=== PATIENT | male | born 1970 | race Caucasian/White ===

== ENCOUNTER → 2023-10-15 15:43 | Outpatient (REF) | payer OTHER, SELFPAY | LOC: HWRAD 15:43 | PROVIDERS: ATTENDING PHYSICIAN Neurological Surgery; FAMILY PHYSICIAN Family Medicine | DX: M54.50 Low back pain, unspecified (principal) | CPT/HCPCS: 72131 ==

== ENCOUNTER → 2023-10-21 20:35 | Outpatient (REF) | payer OTHER, SELFPAY | LOC: MRI 20:35 | PROVIDERS: ATTENDING PHYSICIAN Neurological Surgery | DX: M54.50 Low back pain, unspecified (principal) | CPT/HCPCS: 72148 ==

== ENCOUNTER → 2023-10-28 15:28 | Outpatient (REF) | payer OTHER, SELFPAY | LOC: REG 15:28 | PROVIDERS: ATTENDING PHYSICIAN Neurological Surgery; FAMILY PHYSICIAN Family Medicine | DX: M54.50 Low back pain, unspecified (principal) | CPT/HCPCS: 72114 ==

== ENCOUNTER → 2025-07-05 12:25 | Outpatient (REF) | payer OTHER, SELFPAY | LOC: DHSLP 12:25 | PROVIDERS: ATTENDING PHYSICIAN Nurse Practitioner; FAMILY PHYSICIAN Family Medicine | DX: G47.33 Obstructive sleep apnea (adult) (pediatric) (principal) | CPT/HCPCS: 95800 ==